=== PATIENT | female | born 1970 | race Asian ===

== ENCOUNTER 2016-05-23 11:52 | Outpatient (CLI) | payer OTHER ==
[~2016-05-23 11:52] MED LIST: CYCL10TA35 PO; LEVE500T5 PO; METOPROLOL25 M1 PO; PRILOSEC OTC20 MG PO; TOPAMAX100 MG PO
[2016-05-23 12:12] LABS: PLATELET COUNT 323 K/uL (152-353)
[2016-05-23 12:40] LABS: POTASSIUM 3.7 mmol/L (3.6-5.2); SODIUM 135 mmol/L (136-145)
== END 2016-05-23 21:04 | disposition home or self-care (01) ==
LOC: LABW 11:52
PROVIDERS: Internal Medicine Hematology & Oncology
DX: D64.9 Anemia, unspecified (principal)
CPT/HCPCS: 36415; 80053; 82728; 83540; 83550; 85027

== ENCOUNTER 2016-08-23 09:11 | Outpatient (CLI) | payer OTHER ==
[2016-08-23 09:41] LABS: PLATELET COUNT 292 K/uL (152-353)
[2016-08-23 10:05] LABS: POTASSIUM 3.6 mmol/L (3.6-5.2); SODIUM 140 mmol/L (136-145)
== END 2016-08-23 10:15 | disposition home or self-care (01) ==
LOC: LABW 09:11
PROVIDERS: Internal Medicine Hematology & Oncology
DX: D64.9 Anemia, unspecified (principal); I10 Essential (primary) hypertension; E03.8 Other specified hypothyroidism
CPT/HCPCS: 36415; 80053; 80061; 82728; 83540; 83550; 84443; 85027

== ENCOUNTER 2017-08-07 13:00 | Outpatient (CLI) | payer OTHER | END 2017-08-07 20:32 | disposition home or self-care (01) | LOC: MAMMO 13:00 | DX: Z12.31 Encounter for screening mammogram for malignant neoplasm of breast (principal) ==

== ENCOUNTER 2018-01-06 10:41 | Outpatient (CLI) | payer OTHER ==
[2018-01-06 11:16] LABS: PLATELET COUNT 326 K/uL (152-353)
[2018-01-06 11:45] LABS: POTASSIUM 3.4 mmol/L (3.6-5.2)
== END 2018-01-06 22:18 | disposition home or self-care (01) ==
LOC: LABW 10:41
PROVIDERS: Internal Medicine
DX: I10 Essential (primary) hypertension (principal); E03.9 Hypothyroidism, unspecified
CPT/HCPCS: 36415; 80053; 80061; 81000; 82542; 84439; 84443; 85027

== ENCOUNTER 2018-05-20 13:31 | Outpatient (CLI) | payer OTHER | END 2018-05-20 23:12 | disposition home or self-care (01) | LOC: US 13:31 | DX: R22.1 Localized swelling, mass and lump, neck (principal) ==

== ENCOUNTER 2018-08-21 08:40 | Outpatient (CLI) | payer OTHER ==
[2018-08-21 09:09] LABS: PLATELET COUNT 390 K/uL (152-353)
[2018-08-21 09:27] LABS: POTASSIUM 3.5 mmol/L (3.6-5.2)
== END 2018-08-21 23:31 | disposition home or self-care (01) ==
LOC: LABW 08:40
PROVIDERS: Internal Medicine Gastroenterology
DX: D50.8 Other iron deficiency anemias (principal)
CPT/HCPCS: 36415; 80053; 83540; 85027

== ENCOUNTER 2018-09-23 12:00 | Day surgery (SDC) | payer OTHER | END 2018-09-23 15:25 | disposition home or self-care (01) | LOC: OR 12:00 | PROC: 0DB68ZZ Excision of Stomach, Via Natural or Artificial Opening Endoscopic (ICD-10-PCS; principal; 2018-09-23) | PROC: 0DB88ZZ Excision of Small Intestine, Via Natural or Artificial Opening Endoscopic (ICD-10-PCS; 2018-09-23) | DX: K29.50 Unspecified chronic gastritis without bleeding (principal); K21.0 Gastro-esophageal reflux disease with esophagitis; K92.1 Melena; D50.8 Other iron deficiency anemias; R10.13 Epigastric pain; R11.0 Nausea; K22.4 Dyskinesia of esophagus | CPT/HCPCS: J2001; J2405; J2704; J2765 ==

== ENCOUNTER 2020-04-26 14:29 | Outpatient (CLI) | payer OTHER | END 2020-04-26 19:44 | disposition home or self-care (01) | LOC: US 14:29 | PROVIDERS: ATTEND Internal Medicine | DX: M79.605 Pain in left leg (principal); M54.32 Sciatica, left side ==

== ENCOUNTER 2020-05-31 08:33 | Outpatient (CLI) | payer OTHER | END 2020-05-31 22:37 | disposition home or self-care (01) | LOC: MAMMO 08:33 | PROVIDERS: ATTEND Nurse Practitioner Family | DX: Z12.31 Encounter for screening mammogram for malignant neoplasm of breast (principal) ==

== ENCOUNTER 2020-06-13 06:58 | Emergency (ER) | payer OTHER ==
[~2020-06-13] VITALS: Ht 170.2 cm; Wt 134.7 kg
[2020-06-13 07:07] VITALS: BP 153/81; TEMP 98.3
== END 2020-06-13 09:00 | disposition home or self-care (01) ==
LOC: ED 07:07
DX: S16.1XXA Strain of muscle, fascia and tendon at neck level, initial encounter (principal); S40.011A Contusion of right shoulder, initial encounter; V47.0XXA Car driver injured in collision with fixed or stationary object in nontraffic accident, initial encounter; Y92.89 Other specified places as the place of occurrence of the external cause
CPT/HCPCS: 99283

== ENCOUNTER 2020-07-05 14:04 | Outpatient (CLI) | payer OTHER | END 2020-07-05 19:24 | disposition home or self-care (01) | LOC: US 14:04 | PROVIDERS: ATTEND Internal Medicine | DX: E04.1 Nontoxic single thyroid nodule (principal) ==

== ENCOUNTER 2021-02-15 07:29 | Outpatient (CLI) | payer OTHER | END 2021-02-15 19:21 | disposition home or self-care (01) | LOC: LABW 07:29 | PROVIDERS: ATTEND Internal Medicine | DX: C73 Malignant neoplasm of thyroid gland (principal) | CPT/HCPCS: 36415; 84432; 84439; 84443; 86800 ==

== ENCOUNTER 2021-07-12 07:20 | Outpatient (CLI) | payer OTHER ==
[~2021-07-12] VITALS: Ht 154.9 cm; Wt 80.3 kg
== END 2021-07-12 19:00 | disposition home or self-care (01) ==
LOC: RAD 07:20
PROVIDERS: ATTEND Orthopaedic Surgery
DX: M25.512 Pain in left shoulder (principal)
CPT/HCPCS: J2785

== ENCOUNTER 2022-07-15 18:28 | Outpatient (CLI) | payer OTHER ==
[2022-07-15 18:53] LABS: PLATELET COUNT 345 K/uL (152-353)
[2022-07-15 19:42] LABS: POTASSIUM 3.6 mmol/L (3.6-5.2)
== END 2022-07-15 20:46 | disposition home or self-care (01) ==
LOC: LABW 18:28
PROVIDERS: ATTEND Internal Medicine Hematology & Oncology
DX: C73 Malignant neoplasm of thyroid gland (principal); D50.8 Other iron deficiency anemias; R53.83 Other fatigue
CPT/HCPCS: 36415; 80053; 82728; 83540; 85027

== ENCOUNTER 2022-10-11 08:05 | Outpatient (CLI) | payer OTHER | END 2022-10-11 19:13 | disposition home or self-care (01) | LOC: MAMMO 08:05 | PROVIDERS: ATTEND Internal Medicine | DX: Z12.31 Encounter for screening mammogram for malignant neoplasm of breast (principal) ==